=== PATIENT | male | born 1945 | race Caucasian/White ===

== ENCOUNTER 2023-05-06 18:17 | Observation (INO) ==
--- NOTE | 2023-05-06 18:54 | ED Triage Note ---
Date of Service May 06, 2023 Provider in Triage Author: eJna Pepper History of Present Illness This patient was briefly evaluated while in triage. An abbreviated physical exam was performed. This patient is a 77-year-old Male who presents to the ED for evaluation of nausea and vomiting. Pt. c/o jaw pain. States unable to eat or take medications today. Has cancer of the jaw and was here for similar symptoms a few weeks ago. Took 1 zofran this morning but ongoing vomiting despite this medication. Did take another, vomited again. Pt. not currently on treatment for the cancer. Physical Exam VITALS: Vitals are noted on the nurse's note and reviewed by myself. GENERAL: This is a 77 year old male, in no acute distress, nondiaphoretic, well- developed well-nourished. SKIN: No obvious rashes, edema, erythema HEAD: Normocephalic atraumatic. EYES: Conjunctivae without injection, sclerae without icterus. NECK: No JVD. LUNGS: No retractions or accessory muscle use. MUSCULOSKELETAL: Normal gait. NEURO: Patient was alert and oriented to person place and time. No focal neurological deficits. Initial orders for labs and / or imaging were placed and patient was placed in the waiting area until a bed is available. Please see further documentation for the full ED course.
[2023-05-06] MEDS: ONDANSETRON INJ 2 MG/ML 2 ML VIAL IV STA ×2 (20:03→22:30)
[2023-05-06] MEDS: SODIUM CHLORIDE 0.9% 1,000 ML IV SCH (20:03)
[2023-05-06 20:38] LABS: Basophils # (auto) 0.03 K/uL (0.00-0.20); Basophils % (auto) 0.3 %; Eosinophils # (auto) 0.01 K/uL (0.00-0.50); Eosinophils % (auto) 0.1 %; Hematocrit (blood only) 38.5 % (42.0-52.0); Immature Granulocytes # (auto) 0.05 K/uL (0.01-0.20); Immature Granulocytes % (auto) 0.5 %; Lymphocytes # (auto) 0.72 K/uL (1.20-3.40); Lymphocytes % (auto) 7.4 %; Mean Corpuscular Hemoglobin 29.1 pg (25.0-34.0); Mean Corpuscular Hgb Conc 33.8 g/dL (32.0-36.0); Mean Corpuscular Volume 86.3 fL (80.0-100.0); Mean Platelet Volume 10.9 fL (9.4-12.4); Monocytes # (auto) 0.61 K/uL (0.11-0.59); Monocytes % (auto) 6.3 %; Neutrophils # (auto) 8.26 K/uL (1.40-6.50); Neutrophils % (auto) 85.4 %; Platelet Count 258 K/uL (130-400); RDW Coefficient of Variation 13.2 % (11.5-14.5); RDW Standard Deviation 41.1 fL (36.4-46.3); Red Blood Count 4.46 M/uL (4.70-6.10); White Blood Count 9.68 K/ul (4.8-10.8)
[2023-05-06 20:47] LABS: Albumin Globulin Ratio 1.2 (0.9-2); BUN Creatinine Ratio 23.7 (10-20); Bilirubin,Total 1.4 mg/dl (0.2-1.0); Calcium 9.8 mg/dl (8.6-10.3); Creatinine Clr Calc Pharmacy 81.3 ml/min; Est GFR (African American) 103.4 ml/min; Est GFR (Non-African American) 89.2 ml/min; Globulin 3.4 gm/dl (2.5-4.0); Total Protein 7.4 gm/dl (6.0-8.3)
--- NOTE | 2023-05-06 22:01 | Emergency Department Note ---
Impression & Plan Vomiting, Acute dehydration, Cancer ED Provider Note NAME: NESTOR KAISER AGE: 77 SEX: M : 1945 ARRIVES VIA: Walk-In INFORMANT: [Patient] ED PROVIDER(S): [Rosendo Thomas MD] CHIEF COMPLAINT: Nausea HISTORY OF PRESENT ILLNESS: The patient is a 77-year-old male with jaw cancer. The patient is seeing a group of physicians for the cancer, he has not yet started treatment though. Patient does have a left upper quadrant feeding tube. He uses this because he has a hard time eating with the jaw cancer. The patient had a hard time eating last night so he started using his tube feeds. He thinks maybe he gave himself too much of the feedings as he now is nauseated. He has vomited multiple times. He does not really have any abdominal bloating or pain. There has been no fever, no cough or congestion or shortness of breath. No urinary complaints. No diarrhea. Patient has nausea meds at home, he has tried these multiple times without relief. He feels washed out and weak. He has lost 40--50 pounds throughout the last several months because of this cancer. PMHx/PSHx/Social Hx: See Below PHYSICAL EXAM: GENERAL: Patient is in no acute distress. HEENT: No acute trauma, normocephalic atraumatic, mucous membranes moist, no nasal congestion. NECK: No stridor, no adenopathy, no meningismus, trachea is midline. LUNGS: Clear to auscultation bilaterally, no wheeze, no rhonchi, breath sounds equal. HEART: Without murmurs gallops or rubs, regular rate and rhythm. ABDOMEN: Soft, nontender, no peritonitis. Feeding tube noted in the left upper quadrant. EXTREMITIES: No cyanosis, full range of motion of all the joints without pain or difficulty. NEUROLOGIC: Oriented x 3, no acute motor or sensory deficits, no focal weakness. SKIN: No jaundice, no diaphoresis. DIFFERENTIAL DIAGNOSIS: Bowel obstruction, dehydration, electrolyte imbalance, viral or foodborne illness, among others. EMERGENCY DEPARTMENT PROCEDURES: MEDICAL DECISION MAKING: There is no leukocytosis or concerning anemia. There is a normal platelet count. No renal failure or significant electrolyte abnormality. No concerning liver enzyme elevation. No evidence for pancreatitis. Abdominal and pelvis CT does not show any evidence for bowel obstruction or acute surgical process. On exam, there was no peritonitis. The patient was not toxic or febrile. The patient was given IV saline, 1 L. He received IV lactated Ringer's 1 L. He was given IV Zofran for nausea, a second dose of IV Zofran was given. He was given IV Phenergan for nausea. The patient presents with nausea and vomiting despite his Zofran at home. He has known jaw cancer. He feels weak and exhausted and I do think he is dehydrated. Given the vomiting despite his nausea meds, given the need for tube feedings, given the cancer history, I do think hospitalization is warranted. He requires symptom control and further hydration. I spoke with the patient and case management, the on-call hospitalist was consulted. In short, the cause for his presentation is unclear however, no emergent surgical process found by ED workup. Prior/Outside records/notes reviewed: None. ECG per my interpretation: Indication was weakness. The ECG shows a normal sinus rhythm with some sinus arrhythmia. The rate is 72. There is no ST elevation, no PVCs but the QTc is 435. Continuous Cardiac Monitoring per my interpretation: An order was placed for continuous cardiac monitoring. The monitor shows a rate of 89 with normal sinus rhythm. Imaging/x-ray results per my interpretation: Chronic Medical/Social conditions affecting care: Advanced age, jaw cancer. Care/Management discussed with: Case management, the on-call hospitalist. Level of care consideration(s): After review of the information above and other included data: --I believe the patient requires escalation of care to admission DISPOSITION: Admission Past Med/Surg History Medical History Asthma Spinal stenosis Hemorrhagic cerebrovascular accident (CVA) Hypertension Surgical History (Updated 05/05/23 @ 13:25 by Lucina Avilez RN) H/O hemorrhoidectomy S/P tonsillectomy S/P percutaneous endoscopic gastrostomy (PEG) tube placement H/O ankle fusion Family History (Updated 05/05/23 @ 13:25 by Lucina Avilez, RN) Mother Diabetes Father Cancer Mass in lung Other Family history non-contributory Social History Smoking Status: Former smoker Tobacco Type: Cigarettes Cigarettes Per Day: 10; Second Hand Exposure: Yes; Hx Alcohol Use: Yes Alcohol type: beer Hx Substance Use: No Preferred Language: Estonian Communication Ability: Effective Hearing Ability: Hard of Hearing Beliefs That Will Affect Care: None marital status: Current Living Situation: Spouse current occupational status: retired Feels Safe at Home: Yes Diet: Liquid Tube Feedings Diet Comment: water and ensure during the past year weight has: decreased > 10 lbs Assistive Devices: Cane, Glasses and Hearing Aid - Bilateral Allergies Allergies Allergy/AdvReac Type Severity Reaction Status Date / Time grass pollen Allergy Mild sneezing Verified 05/06/23 23:50 congestion in fall tree and shrub pollen Allergy Mild sneezing Verified 05/06/23 23:50 congestion in fall weed pollen Allergy Mild sneezing Verified 05/06/23 23:50 congestion in fall Home Meds Home Medications Medication Instructions Recorded Confirmed amlodipine 2.5 mg tablet 2.5 mg PO BID 05/05/23 05/06/23 bisacodyl 5 mg tablet 10 mg PO DAILY PRN Constipation 05/05/23 05/06/23 celecoxib 100 mg capsule 100 mg PO BID PRN Pain 05/05/23 05/06/23 cyanocobalamin (vitamin B-12) 1,000 mcg PO DAILY 05/05/23 05/06/23 1,000 mcg capsule ensure plus vanilla 1 can PO BID 05/05/23 05/06/23 fluocinonide 0.05 % topical cream 1 applic topical Q OTHER DAY 05/05/23 05/06/23 ketoconazole 2 % shampoo 1 applic topical .COMPLEX 05/05/23 05/06/23 magnesium hydroxide 400 mg/5 mL 10 ml PO DAILY PRN Constipation 05/05/23 05/06/23 oral suspension (Milk of Magnesia) morphine 30 mg immediate release 30 mg PO TID PRN Pain 05/05/23 05/06/23 tablet naloxone 4 mg/actuation nasal spray 4 mg intranasal Q2M 05/05/23 05/06/23 ondansetron 4 mg disintegrating 4 mg PO Q6H PRN NAUSEA/VOMITING 05/05/23 05/06/23 tablet ondansetron 8 mg disintegrating 8 mg PO Q8H PRN NAUSEA/VOMITING 05/05/23 05/06/23 tablet oxycodone 10 mg tablet 15 mg PO Q4H PRN Pain 05/05/23 05/06/23 pantoprazole 40 mg tablet,delayed 40 mg PO BID 05/05/23 05/06/23 release polyethylene glycol 3350 17 17 g PO HS 05/05/23 05/06/23 gram/dose oral powder pregabalin 75 mg capsule 150 mg PO BID 05/05/23 05/06/23 propranolol 60 mg capsule,24 60 mg PO DAILY 05/05/23 05/06/23 hr,extended release protein See Rx Instructions PO .COMPLEX 05/05/23 05/06/23 sennosides 8.6 mg tablet 8.6 mg PO TID PRN Constipation 05/05/23 05/06/23 tamsulosin 0.4 mg capsule 0.4 mg PO DAILY 05/05/23 05/06/23 albuterol sulfate 90 mcg/actuation 1 puff inhalation DIRECTED PRN 05/06/23 05/06/23 aerosol inhaler Shortness Of Breath Or Wheezing hydrochlorothiazide 25 mg tablet 25 mg PO QAM 05/06/23 05/06/23 losartan 25 mg tablet 25 mg PO QAM 05/06/23 05/06/23 Results & Data (ED) Vital Signs Vital Signs - 24 hr 05/06/23 18:50 05/06/23 20:29 05/06/23 20:38 Temperature 36.9 C Temperature Source Temporal Artery Scan Pulse Rate 79 80 Pulse Rate [Apical] Pulse Rate [Finger] 66 Pulse Rhythm [Finger] Respiratory Rate 19 20 Respiratory Effort / Characteristics Respiratory Depth Respiratory Pattern Blood Pressure 150/106 H Blood Pressure [Left Arm] 160/71 H Blood Pressure Mean 120 Blood Pressure Mean [Left Arm] 100 Blood Pressure Position [Left Arm] Pulse Oximetry 99 98 Oxygen Delivery Method Room Air Room Air Sepsis Recent Fever Within 48 Hours No Sepsis New/Unexplained Change in Mental Status N/A Sepsis Action Taken by Nursing No Action Required 05/06/23 20:55 05/06/23 20:55 05/06/23 20:56 Temperature 36.4 C L 36.4 C L Temperature Source Oral Oral Pulse Rate Pulse Rate [Apical] Pulse Rate [Finger] 89 Pulse Rhythm [Finger] Respiratory Rate Respiratory Effort / Characteristics Respiratory Depth Respiratory Pattern Blood Pressure Blood Pressure [Left Arm] Blood Pressure Mean Blood Pressure Mean [Left Arm] Blood Pressure Position [Left Arm] Pulse Oximetry 98 100 Oxygen Delivery Method Room Air Room Air Sepsis Recent Fever Within 48 Hours Sepsis New/Unexplained Change in Mental Status Sepsis Action Taken by Nursing 05/06/23 22:44 05/06/23 23:30 05/06/23 23:54 Temperature Temperature Source Pulse Rate 86 Pulse Rate [Apical] 68 Pulse Rate [Finger] 62 Pulse Rhythm [Finger] Regular Respiratory Rate 18 20 Respiratory Effort / Characteristics Non-Labored Spontaneous Respiratory Depth Normal Respiratory Pattern Regular Blood Pressure 172/81 H Blood Pressure [Left Arm] 167/91 H 167/81 H Blood Pressure Mean Blood Pressure Mean [Left Arm] 116 109 Blood Pressure Position [Left Arm] Lying Pulse Oximetry 97 99 Oxygen Delivery Method Room Air Room Air Sepsis Recent Fever Within 48 Hours Sepsis New/Unexplained Change in Mental Status Sepsis Action Taken by Nursing 05/07/23 00:16 Temperature Temperature Source Pulse Rate 74 Pulse Rate [Apical] Pulse Rate [Finger] Pulse Rhythm [Finger] Respiratory Rate Respiratory Effort / Characteristics Respiratory Depth Respiratory Pattern Blood Pressure 166/93 H Blood Pressure [Left Arm] Blood Pressure Mean Blood Pressure Mean [Left Arm] Blood Pressure Position [Left Arm] Pulse Oximetry Oxygen Delivery Method Sepsis Recent Fever Within 48 Hours Sepsis New/Unexplained Change in Mental Status Sepsis Action Taken by Care Home Medications Current Medication List: was personally reviewed by me Laboratory Data Attestation: I reviewed the patient's lab results. 05/06/23 20:05 05/06/23 20:05 Lab Results 05/06/23 Range/Units 20:05 WBC 9.68 (4.8-10.8) K/ul RBC 4.46 L (4.70-6.10) M/uL Hgb 13.0 L (14.0-18.0) g/dl Hct 38.5 L (42.0-52.0) % MCV 86.3 (80.0-100.0) fL MCH 29.1 (25.0-34.0) pg MCHC 33.8 (32.0-36.0) g/dL RDW Std Deviation 41.1 (36.4-46.3) fL RDW Coeff of José 13.2 (11.5-14.5) % Plt Count 258 (130-400) K/uL MPV 10.9 (9.4-12.4) fL Immature Gran % (Auto) 0.5 % Neut % (Auto) 85.4 % Lymph % (Auto) 7.4 % [place] % (Auto) 6.3 % Eos % (Auto) 0.1 % Baso % (Auto) 0.3 % Neut # (Auto) 8.26 H (1.40-6.50) K/uL Lymph # (Auto) 0.72 L (1.20-3.40) K/uL [place] # (Auto) 0.61 H (0.11-0.59) K/uL Eos # (Auto) 0.01 (0.00-0.50) K/uL Baso # (Auto) 0.03 (0.00-0.20) K/uL Immature Gran # (Auto) 0.05 (0.01-0.20) K/uL Sodium 137 (136-145) mmol/L Potassium 4.0 (3.5-5.1) mmol/L Chloride 97 L (98-107) mmol/L Carbon Dioxide 32 (21-32) mmol/L Anion Gap 8 (3-11) BUN 18 (6-23) mg/dl Creatinine 0.76 (0.6-1.4) mg/dl Est Cr Clr Drug Dosing 81.3 ml/min Est GFR ( Amer) 103.4 ml/min Est GFR (Non-Af Amer) 89.2 ml/min BUN/Creatinine Ratio 23.7 H (10-20) Glucose 113 H (70-99(Fasting)) mg/dl Calcium 9.8 (8.6-10.3) mg/dl Magnesium 2.1 (1.7-2.4) mg/dl Total Bilirubin 1.4 H (0.2-1.0) mg/dl AST 19 (13-39) U/L ALT 40 (7-52) U/L Alkaline Phosphatase 101 (34-104) U/L Total Protein 7.4 (6.0-8.3) gm/dl Albumin 4.0 (3.4-5.0) gm/dl Globulin 3.4 (2.5-4.0) gm/dl Albumin/Globulin Ratio 1.2 (0.9-2) Lipase 12 (11-82) U/L Administered Medications Discontinued Medications Sodium Chloride (Nss) 1,000 mls @ 999 mls/hr IV .Q1H1M TASHA Stop: 05/06/23 20:00 Last Infusion: 05/06/23 22:02 Dose: Infused Documented By: Admin: 05/06/23 20:03 Dose: 999 mls/hr Documented By: EDIN Promethazine HCl (Phenergan) 6.25 mg in 50.25 mls @ 201 mls/hr IV NOW STA Stop: 05/06/23 22:01 Last Infusion: 05/06/23 23:17 Dose: Infused Documented By: Admin: 05/06/23 22:27 Dose: 201 mls/hr Documented By: EDWARD Lactated Ringer's (Lr) 1,000 mls @ 999 mls/hr IV .Q1H1M ONE Stop: 05/06/23 22:47 Last Infusion: 05/06/23 23:37 Dose: Infused Documented By: Admin: 05/06/23 22:26 Dose: 999 mls/hr Documented By: EDWARD Ioversol (Optiray 320 500ml) 82 ml IV ONCE ONE Stop: 05/06/23 22:16 Last Admin: 05/06/23 22:15 Dose: 82 ml Documented By: ELISSA Metoprolol Tartrate (Metoprolol Tartrate 1 Mg/Ml Vial) 2.5 mg IV NOW STA Stop: 05/06/23 23:37 Last Admin: 05/06/23 23:54 Dose: 2.5 mg Documented By: JACKSON Morphine Sulfate (Morphine Sulfate Ir 15 Mg Tab (Immediate Release)) 30 mg PO NOW STA Stop: 05/07/23 00:18 Last Admin: 05/07/23 00:35 Dose: 30 mg Documented By: JACKSON Ondansetron HCl (Ondansetron Inj 2 Mg/Ml 2 Ml Vial) 4 mg IV NOW STA Stop: 05/06/23 18:55 Last Admin: 05/06/23 20:03 Dose: 4 mg Documented By: EDIN Ondansetron HCl (Ondansetron Inj 2 Mg/Ml 2 Ml Vial) 4 mg IV NOW STA Stop: 05/06/23 21:48 Last Admin: 05/06/23 22:30 Dose: Not Given Documented By: EDWARD Pregabalin (Pregabalin 150 Mg Cap) 150 mg PO NOW STA Stop: 05/07/23 00:19 Last Admin: 05/07/23 00:35 Dose: 150 mg Documented By: JACKSON Imaging Data Radiologist's Impression: Abdomen/Pelvis CT 05/06/23 21:47 Exam(s): CT ABDOMEN + PELVIS With Contrast IV Amt: 82 ml optiray 320 EXAM: CT Abdomen and Pelvis With Intravenous Contrast CLINICAL HISTORY: Reason for exam: poss obstruction. TECHNIQUE: Axial computed tomography images of the abdomen and pelvis with intravenous contrast. CTDI is 19.33 mGy and DLP is 1018.19 mGy-cm. Automated exposure control was utilized for the study. A dose lowering technique was utilized adhering to the principles of ALARA. CONTRAST: Patient received 82 ml optiray 320 of IV contrast COMPARISON: December 14, 2017 FINDINGS: Lung bases: Unremarkable. No mass. No consolidation. ABDOMEN: Liver: Unremarkable. No mass. Gallbladder and bile ducts: Previous cholecystectomy. Is a trace amount of pneumobilia. No biliary duct dilation is seen. Pancreas: Unremarkable. No mass. No ductal dilation. Spleen: Unremarkable. No splenomegaly. Adrenals: Unremarkable. No mass. Kidneys and ureters: Unremarkable. No solid mass. No hydronephrosis. Stomach and bowel: See below. PELVIS: Appendix: The appendix is not visible. Bowel loops are nondilated. There is mild diverticulosis of the sigmoid colon. No acute inflammatory changes are seen involving the bowel. Bladder: Unremarkable. No mass. Reproductive: Unremarkable as visualized. ABDOMEN and PELVIS: Intraperitoneal space: Unremarkable. No free air. No significant fluid collection. Bones/joints: Mild to moderate multilevel degenerative changes throughout the spine. No acute fracture or subluxation is seen. Soft tissues: Unremarkable. Vasculature: The abdominal aorta is mildly calcified but nondilated. Lymph nodes: Unremarkable. No enlarged lymph nodes. Tubes, lines and devices: There is a gastrostomy tube in the stomach. IMPRESSION: 1. The appendix is not visible. Bowel loops are nondilated. There is mild diverticulosis of the sigmoid colon. No acute inflammatory changes are seen involving the bowel. 2. Previous cholecystectomy. Is a trace amount of pneumobilia. No biliary duct dilation is seen. Electronically signed by: David Bajwa MD 05/06/23 23:08 PM Discharge Plan Visit Data Chief Complaint: Nausea Stated Complaint: NAUSEA, PAIN, UNABLE EAT, VOMITTING, CANCER PT ED Provider: Rosendo Thomas Discharge Problem: Vomiting, Acute dehydration, Cancer Patient Disposition: Admitted As Inpatient Condition: Fair Forms Stand Alone Forms: [facility] Prescriptions Prescriptions: No Action amlodipine 2.5 mg tablet 2.5 mg PO BID celecoxib 100 mg capsule 100 mg PO BID PRN (Reason: Pain) cyanocobalamin (vitamin B-12) 1,000 mcg capsule 1,000 mcg PO DAILY naloxone 4 mg/actuation spray,non-aerosol 4 mg intranasal Q2M Rx Instructions: spray 1 dose into ONE nostril; alternate nostrils w each dose until help arrives ensure plus vanilla 1 can PO BID protein Powder See Rx Instructions PO .COMPLEX Rx Instructions: 1 scoop by mouth three times daily orally; ondansetron 4 mg tablet,disintegrating 4 mg PO Q6H PRN (Reason: NAUSEA/VOMITING) ondansetron 8 mg tablet,disintegrating 8 mg PO Q8H PRN (Reason: NAUSEA/VOMITING) pantoprazole 40 mg tablet,delayed release (DR/EC) 40 mg PO BID polyethylene glycol 3350 17 gram/dose powder 17 g PO HS pregabalin 75 mg capsule 150 mg PO BID propranolol 60 mg capsule,extended release 24 hr 60 mg PO DAILY sennosides 8.6 mg tablet 8.6 mg PO TID PRN (Reason: Constipation) Patient Comments: take on days when taking oxycodone tamsulosin 0.4 mg capsule 0.4 mg PO DAILY bisacodyl 5 mg tablet 10 mg PO DAILY PRN (Reason: Constipation) fluocinonide 0.05 % cream 1 applic topical Q OTHER DAY ketoconazole 2 % shampoo 1 applic topical .COMPLEX Rx Instructions: 1 applic topically small amount to skin dialy; magnesium hydroxide [Milk of Magnesia] 400 mg/5 mL suspension 10 ml PO DAILY PRN (Reason: Constipation) morphine 30 mg tablet 30 mg PO TID PRN (Reason: Pain) oxycodone 10 mg tablet 15 mg PO Q4H PRN (Reason: Pain) losartan 25 mg tablet 25 mg PO QAM hydrochlorothiazide 25 mg tablet 25 mg PO QAM albuterol sulfate 90 mcg/actuation Hfa Aerosol Inhaler 1 puff INHALATION DIRECTED PRN (Reason: Shortness Of Breath Or Wheezing) Referrals Referrals: Rajat Zurita MD [Primary Care Provider] - Discharge Problem: Vomiting Qualifiers: Vomiting type: unspecified Nausea presence: with nausea Qualified Code(s): R 11.2 - Nausea with vomiting, unspecified
[2023-05-06 22:08] LABS: Magnesium 2.1 mg/dl (1.7-2.4)
[2023-05-06] MEDS: OPTIRAY 320 500ml IV ONE (22:15)
[2023-05-06] MEDS: LACTATED RINGER'S 1,000 ML IV ONE (22:26)
[2023-05-06] MEDS: PROMETHAZINE 6.25 MG/50.25 ML BAG IV STA (22:27)
--- NOTE | 2023-05-06 23:09 | CT Scan Report ---
Exam(s): CT ABDOMEN + PELVIS With Contrast IV Amt: 82 ml optiray 320 EXAM: CT Abdomen and Pelvis With Intravenous Contrast CLINICAL HISTORY: Reason for exam: poss obstruction. TECHNIQUE: Axial computed tomography images of the abdomen and pelvis with intravenous contrast. CTDI is 19.33 mGy and DLP is 1018.19 mGy-cm. Automated exposure control was utilized for the study. A dose lowering technique was utilized adhering to the principles of ALARA. CONTRAST: Patient received 82 ml optiray 320 of IV contrast COMPARISON: December 14, 2017 FINDINGS: Lung bases: Unremarkable. No mass. No consolidation. ABDOMEN: Liver: Unremarkable. No mass. Gallbladder and bile ducts: Previous cholecystectomy. Is a trace amount of pneumobilia. No biliary duct dilation is seen. Pancreas: Unremarkable. No mass. No ductal dilation. Spleen: Unremarkable. No splenomegaly. Adrenals: Unremarkable. No mass. Kidneys and ureters: Unremarkable. No solid mass. No hydronephrosis. Stomach and bowel: See below. PELVIS: Appendix: The appendix is not visible. Bowel loops are nondilated. There is mild diverticulosis of the sigmoid colon. No acute inflammatory changes are seen involving the bowel. Bladder: Unremarkable. No mass. Reproductive: Unremarkable as visualized. ABDOMEN and PELVIS: Intraperitoneal space: Unremarkable. No free air. No significant fluid collection. Bones/joints: Mild to moderate multilevel degenerative changes throughout the spine. No acute fracture or subluxation is seen. Soft tissues: Unremarkable. Vasculature: The abdominal aorta is mildly calcified but nondilated. Lymph nodes: Unremarkable. No enlarged lymph nodes. Tubes, lines and devices: There is a gastrostomy tube in the stomach. IMPRESSION: 1. The appendix is not visible. Bowel loops are nondilated. There is mild diverticulosis of the sigmoid colon. No acute inflammatory changes are seen involving the bowel. 2. Previous cholecystectomy. Is a trace amount of pneumobilia. No biliary duct dilation is seen. Electronically signed by: David Bajwa MD 05/06/23 23:08 PM
[2023-05-06] MEDS: METOPROLOL TARTRATE 1 MG/ML VIAL IV STA (23:54)
--- NOTE | 2023-05-07 00:19 | History & Physical Report ---
Date of Service May 07, 2023 Assessment & Plan (1) Asymptomatic hypertensive urgency: Plan: Secondary to nausea/vomiting symptoms ? Viral GI illness Rule out UTI New onset anemia, patient denies overt GI/ bleed symptoms hyperlipidemia, on statin Rx stage IV oral cavity cancer, chemoradiation contemplated, patient scheduled to have outpatient CT simulation study today at [facility] cancer pain on narcotics history traumatic subdural hematoma bronchial asthma, not in acute exacerbation past tobacco abuse OBS Medical telemetry IV Lopressor 1 dose now Antiemetics Supportive management for presumptive viral GI illness Anemia workup, transfuse PRBC if hemoglobin less than 7 and or for symptomatic anemia Radiation oncology consult re: head and neck cancer, contemplated outpatient RT (Patient known to Dr. Carmelita Morgan.) DVT prophylaxis. Lovenox subcu Full code Patient requesting updates providers. Ms. Jessi Cortes, contact #[phone]. Text document was generated using [employer] voice recognition software. It may contain grammatical or spelling errors. Kindly contact undersigned for clarification of any documentation item in question. History of Present Illness Chief Complaint: nausea, vomiting Primary Care Provider: Dr. Rice History obtained from patient, family, and records. Medical history significant for hypertension, hyperlipidemia, stage IV oral cavity cancer, ongoing tube feeds, cancer pain on narcotics, BPH, history traumatic subdural hematoma, bronchial asthma, past tobacco abuse. 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 Surgery not recommended by specialist. Chemoradiation contemplated. Patient scheduled to have outpatient CT simulation imaging for treatment planning for radiation therapy today at [facility] following initial consultation 2 days ago. 2 nights ago, patient noted nausea, vomiting symptoms. No unusual headache or abdominal pain complaints. No chest pain, SOB. Not sure about sick contacts. Good bowel movement. Denies black/bloody stools. No fever, no chills. Patient unable to keep anything down as per . Highest SBP of 170s documented at the ER. Intractable symptoms at the ER. 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 Allergies Allergy/AdvReac Type Severity Reaction Status Date / Time grass pollen Allergy Mild sneezing Verified 05/06/23 23:50 congestion in fall tree and shrub pollen Allergy Mild sneezing Verified 05/06/23 23:50 congestion in fall weed pollen Allergy Mild sneezing Verified 05/06/23 23:50 congestion in fall Home Medications Medication Instructions Recorded Confirmed Type amlodipine 2.5 mg tablet 2.5 mg PO BID 05/05/23 05/06/23 History bisacodyl 5 mg tablet 10 mg PO DAILY PRN Constipation 05/05/23 05/06/23 History celecoxib 100 mg capsule 100 mg PO BID PRN Pain 05/05/23 05/06/23 History cyanocobalamin (vitamin B-12) 1,000 mcg PO DAILY 05/05/23 05/06/23 History 1,000 mcg capsule ensure plus vanilla 1 can PO BID 05/05/23 05/06/23 History fluocinonide 0.05 % topical cream 1 applic topical Q OTHER DAY 05/05/23 05/06/23 History ketoconazole 2 % shampoo 1 applic topical .COMPLEX 05/05/23 05/06/23 History magnesium hydroxide 400 mg/5 mL 10 ml PO DAILY PRN Constipation 05/05/23 05/06/23 History oral suspension (Milk of Magnesia) morphine 30 mg immediate release 30 mg PO TID PRN Pain 05/05/23 05/06/23 History tablet naloxone 4 mg/actuation nasal spray 4 mg intranasal Q2M 05/05/23 05/06/23 History ondansetron 4 mg disintegrating 4 mg PO Q6H PRN NAUSEA/VOMITING 05/05/23 05/06/23 History tablet ondansetron 8 mg disintegrating 8 mg PO Q8H PRN NAUSEA/VOMITING 05/05/23 05/06/23 History tablet oxycodone 10 mg tablet 15 mg PO Q4H PRN Pain 05/05/23 05/06/23 History pantoprazole 40 mg tablet,delayed 40 mg PO BID 05/05/23 05/06/23 History release polyethylene glycol 3350 17 17 g PO HS 05/05/23 05/06/23 History gram/dose oral powder pregabalin 75 mg capsule 150 mg PO BID 05/05/23 05/06/23 History propranolol 60 mg capsule,24 60 mg PO DAILY 05/05/23 05/06/23 History hr,extended release protein See Rx Instructions PO .COMPLEX 05/05/23 05/06/23 History sennosides 8.6 mg tablet 8.6 mg PO TID PRN Constipation 05/05/23 05/06/23 History tamsulosin 0.4 mg capsule 0.4 mg PO DAILY 05/05/23 05/06/23 History albuterol sulfate 90 mcg/actuation 1 puff inhalation DIRECTED PRN 05/06/23 05/06/23 History aerosol inhaler Shortness Of Breath Or Wheezing hydrochlorothiazide 25 mg tablet 25 mg PO QAM 05/06/23 05/06/23 History losartan 25 mg tablet 25 mg PO QAM 05/06/23 05/06/23 History Past Med/Surg History Medical History Asthma Spinal stenosis Hemorrhagic cerebrovascular accident (CVA) Hypertension Surgical History (Updated 05/05/23 @ 13:25 by Lucina Avilez RN) H/O hemorrhoidectomy S/P tonsillectomy S/P percutaneous endoscopic gastrostomy (PEG) tube placement H/O ankle fusion Family History (Updated 05/05/23 @ 13:25 by Lucina Avilez, RN) Mother Diabetes Father Cancer Mass in lung Other Family history non-contributory Social History Smoking Status: Former smoker Tobacco Type: Cigarettes Cigarettes Per Day: 10; Second Hand Exposure: Yes; Hx Alcohol Use: No Hx Substance Use: No Preferred Language: Maltese Communication Ability: Effective Hearing Ability: Hard of Hearing Contract Loader Required: No Beliefs That Will Affect Care: None marital status: Current Living Situation: Spouse current occupational status: retired Other Information That Helps Us Care for You: No Feels Safe at Home: Yes Safety Concerns: Feels Safe At This Time Diet: Liquid Tube Feedings Diet Comment: water and ensure during the past year weight has: decreased > 10 lbs Assistive Devices: Cane Assistive Devices Comment: doesn't use all the time Review of Systems Review of Systems: As per HPI, all other systems reviewed and negative Physical Exam Physical Exam: GENERAL: Slightly uncomfortable, no respiratory distress SKIN: Pallor, warm HEENT: Pale palpebral conjunctivae, no ptosis, dry buccal mucosa, left jaw tenderness NECK : Supple, no tenderness CHEST : CTA, no tenderness HEART : RRR, no obvious murmurs ABDOMEN: Some distention, PEG tube in place, nontender EXTREMITIES : No LE swelling/tenderness, no other conspicuous deformities noted NEUROLOGIC : Coherent, no facial asymmetry, no other gross focality Results & Data Results & Data Vital Signs (Past 12 Hours) Vital Signs Temp Pulse Pulse Pulse Resp BP BP 05/07/23 00:16 74 166/93 H 05/06/23 23:54 86 172/81 H 05/06/23 23:30 68 20 167/81 H 05/06/23 22:44 62 18 167/91 H 05/06/23 20:56 36.4 C L 89 05/06/23 20:55 05/06/23 20:55 36.4 C L 05/06/23 20:38 80 05/06/23 20:29 66 20 160/71 H 05/06/23 18:50 36.9 C 79 19 150/106 H Pulse Ox O2 Del Method 05/07/23 00:16 05/06/23 23:54 05/06/23 23:30 99 Room Air 05/06/23 22:44 97 Room Air 05/06/23 20:56 100 Room Air 05/06/23 20:55 98 Room Air 05/06/23 20:55 05/06/23 20:38 05/06/23 20:29 98 Room Air 05/06/23 18:50 99 Room Air Laboratory Results Laboratory Results WBC 9.68 K/ul (4.8-10.8) 05/06/23 20:05 RBC 4.46 M/uL (4.70-6.10) L 05/06/23 20:05 Hgb 13.0 g/dl (14.0-18.0) L 05/06/23 20:05 Hct 38.5 % (42.0-52.0) L 05/06/23 20:05 MCV 86.3 fL (80.0-100.0) 05/06/23 20:05 MCH 29.1 pg (25.0-34.0) 05/06/23 20:05 MCHC 33.8 g/dL (32.0-36.0) 05/06/23 20:05 RDW Std Deviation 41.1 fL (36.4-46.3) 05/06/23 20:05 RDW Coeff of José 13.2 % (11.5-14.5) 05/06/23 20:05 Plt Count 258 K/uL (130-400) 05/06/23 20:05 MPV 10.9 fL (9.4-12.4) 05/06/23 20:05 Immature Gran % (Auto) 0.5 % 05/06/23 20:05 Neut % (Auto) 85.4 % 05/06/23 20:05 Lymph % (Auto) 7.4 % 05/06/23 20:05 [place] % (Auto) 6.3 % 05/06/23 20:05 Eos % (Auto) 0.1 % 05/06/23 20:05 Baso % (Auto) 0.3 % 05/06/23 20:05 Neut # (Auto) 8.26 K/uL (1.40-6.50) H 05/06/23 20:05 Lymph # (Auto) 0.72 K/uL (1.20-3.40) L 05/06/23 20:05 [place] # (Auto) 0.61 K/uL (0.11-0.59) H 05/06/23 20:05 Eos # (Auto) 0.01 K/uL (0.00-0.50) 05/06/23 20:05 Baso # (Auto) 0.03 K/uL (0.00-0.20) 05/06/23 20:05 Immature Gran # (Auto) 0.05 K/uL (0.01-0.20) 05/06/23 20:05 Sodium 137 mmol/L (136-145) 05/06/23 20:05 Potassium 4.0 mmol/L (3.5-5.1) 05/06/23 20:05 Chloride 97 mmol/L (98-107) L 05/06/23 20:05 Carbon Dioxide 32 mmol/L (21-32) 05/06/23 20:05 Anion Gap 8 (3-11) 05/06/23 20:05 BUN 18 mg/dl (6-23) 05/06/23 20:05 Creatinine 0.76 mg/dl (0.6-1.4) 05/06/23 20:05 Est Cr Clr Drug Dosing 81.3 ml/min 05/06/23 20:05 Est GFR ( Amer) 103.4 ml/min 05/06/23 20:05 Est GFR (Non-Af Amer) 89.2 ml/min 05/06/23 20:05 BUN/Creatinine Ratio 23.7 (10-20) H 05/06/23 20:05 Glucose 113 mg/dl (70-99(Fasting)) H 05/06/23 20:05 Calcium 9.8 mg/dl (8.6-10.3) 05/06/23 20:05 Magnesium 2.1 mg/dl (1.7-2.4) 05/06/23 20:05 Total Bilirubin 1.4 mg/dl (0.2-1.0) H 05/06/23 20:05 AST 19 U/L (13-39) 05/06/23 20:05 ALT 40 U/L (7-52) 05/06/23 20:05 Alkaline Phosphatase 101 U/L (34-104) 05/06/23 20:05 Total Protein 7.4 gm/dl (6.0-8.3) 05/06/23 20:05 Albumin 4.0 gm/dl (3.4-5.0) 05/06/23 20:05 Globulin 3.4 gm/dl (2.5-4.0) 05/06/23 20:05 Albumin/Globulin Ratio 1.2 (0.9-2) 05/06/23 20:05 Lipase 12 U/L (11-82) 05/06/23 20:05 Impressions Abdomen/Pelvis CT 05/06/23 21:47 Exam(s): CT ABDOMEN + PELVIS With Contrast IV Amt: 82 ml optiray 320 EXAM: CT Abdomen and Pelvis With Intravenous Contrast CLINICAL HISTORY: Reason for exam: poss obstruction. TECHNIQUE: Axial computed tomography images of the abdomen and pelvis with intravenous contrast. CTDI is 19.33 mGy and DLP is 1018.19 mGy-cm. Automated exposure control was utilized for the study. A dose lowering technique was utilized adhering to the principles of ALARA. CONTRAST: Patient received 82 ml optiray 320 of IV contrast COMPARISON: December 14, 2017 FINDINGS: Lung bases: Unremarkable. No mass. No consolidation. ABDOMEN: Liver: Unremarkable. No mass. Gallbladder and bile ducts: Previous cholecystectomy. Is a trace amount of pneumobilia. No biliary duct dilation is seen. Pancreas: Unremarkable. No mass. No ductal dilation. Spleen: Unremarkable. No splenomegaly. Adrenals: Unremarkable. No mass. Kidneys and ureters: Unremarkable. No solid mass. No hydronephrosis. Stomach and bowel: See below. PELVIS: Appendix: The appendix is not visible. Bowel loops are nondilated. There is mild diverticulosis of the sigmoid colon. No acute inflammatory changes are seen involving the bowel. Bladder: Unremarkable. No mass. Reproductive: Unremarkable as visualized. ABDOMEN and PELVIS: Intraperitoneal space: Unremarkable. No free air. No significant fluid collection. Bones/joints: Mild to moderate multilevel degenerative changes throughout the spine. No acute fracture or subluxation is seen. Soft tissues: Unremarkable. Vasculature: The abdominal aorta is mildly calcified but nondilated. Lymph nodes: Unremarkable. No enlarged lymph nodes. Tubes, lines and devices: There is a gastrostomy tube in the stomach. IMPRESSION: 1. The appendix is not visible. Bowel loops are nondilated. There is mild diverticulosis of the sigmoid colon. No acute inflammatory changes are seen involving the bowel. 2. Previous cholecystectomy. Is a trace amount of pneumobilia. No biliary duct dilation is seen. Electronically signed by: David Bajwa MD 05/06/23 23:08 PM
[2023-05-07] MEDS ORDERED: PROMETHAZINE HCL 6.25 MG in SODIUM CHLORIDE 0.9% 50 ML IV PRN (00:22)
[2023-05-07] MEDS ORDERED: ACETAMINOPHEN 325 MG TAB PO PRN (00:22)
[2023-05-07] MEDS: MoRPHine SULFATE IR 15 MG TAB (IMMEDIATE RELEASE) PO STA (00:35)
[2023-05-07] MEDS: PREGABALIN 150 MG CAP PO STA (00:35)
[2023-05-07 01:21] LABS: Appearance Urine Turbid (Clear); Bacteria Urine Automated Negative (Negative); Bilirubin Urine Negative (Negative); Blood Urine Negative (Negative); Color Urine Yellow; Glucose Urine UA Negative (Negative); Ketones Urine 1+ (Negative); Leukocyte Esterase Urine Negative (Negative); Nitrite Urine Negative (Negative); Protein Urine Negative (Negative); RBC Urine Automated 0-4 /hpf (0-4); Specific Gravity Urine 1.036 (1.000-1.030); Urobilinogen Urine Negative (Negative); pH Urine >= 9.0 (4.5-7.5)
[2023-05-07] MEDS ORDERED: MAGNESIUM HYDROXIDE SUSP 30 ML UDC PO PRN (02:58)
[2023-05-07] MEDS ORDERED: bisacodyL 5 MG TABEC PO PRN (03:05)
[2023-05-07] MEDS: LOSARTAN POTASSIUM 50 MG TAB PO STA (04:25)
[2023-05-07 08:03] LABS: Basophils # (auto) 0.05 K/uL (0.00-0.20); Basophils % (auto) 0.5 %; Eosinophils # (auto) 0.07 K/uL (0.00-0.50); Eosinophils % (auto) 0.6 %; Hematocrit (blood only) 34.1 % (42.0-52.0); Hemoglobin 11.8 g/dl (14.0-18.0); Immature Granulocytes # (auto) 0.04 K/uL (0.01-0.20); Immature Granulocytes % (auto) 0.4 %; Lymphocytes # (auto) 1.08 K/uL (1.20-3.40); Lymphocytes % (auto) 9.7 %; Mean Corpuscular Hemoglobin 29.7 pg (25.0-34.0); Mean Corpuscular Hgb Conc 34.6 g/dL (32.0-36.0); Mean Corpuscular Volume 85.9 fL (80.0-100.0); Mean Platelet Volume 10.6 fL (9.4-12.4); Monocytes # (auto) 1.28 K/uL (0.11-0.59); Monocytes % (auto) 11.5 %; Neutrophils # (auto) 8.59 K/uL (1.40-6.50); Neutrophils % (auto) 77.3 %; Platelet Count 217 K/uL (130-400); RDW Coefficient of Variation 13.2 % (11.5-14.5); RDW Standard Deviation 41.1 fL (36.4-46.3); Red Blood Count 3.97 M/uL (4.70-6.10); Reticulocyte % 1.45 % (0.50-2.00); White Blood Count 11.11 K/ul (4.8-10.8)
--- NOTE | 2023-05-07 08:11 | Hospitalist Progress Note ---
Date of Service May 07, 2023 Assessment & Plan (1) Asymptomatic hypertensive urgency: (2) On tube feeding diet: (3) Jaw pain: Plan Pt is a 77yoM with PMHx significant for hypertension, hyperlipidemia, stage IV oral cavity cancer, ongoing tube feeds, cancer pain on narcotics, BPH, history traumatic subdural hematoma, bronchial asthma, past tobacco abuse admitted with intractable N/V. 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 Presenting with intractable N/V after starting tube feeds at home Notes he has not been able to eat at home due to jaw pain so started his tube feeds, questions if overfeeding and causing N/V UA not suggestive of infection as a possible cause Stool panel pending to rule out a viral GI illness Uncertain etiology at this time Antiemetics- Heme/onc recommending compazine + zofran for d/c (see below), ordered while inpatient as well Supportive management for presumptive viral GI illness Continue to monitor SCC of gingiva with mandibular invasion Pt with known diagnosis, follows with rad onc, appreciate recs. - recommendation for combined radiation and chemotherapy -CT simulation completed on 05/07 -per rad onc Dr Eddie torres consult to [facility] cancer center for medical oncology consult, Dr Ag montalvo Medical Oncology consulted, appreciate recs -plan for chemo outpatient, cisplatin while receiving radiation -follow up in clinic within a week for further discussion after radiation planning completed -Consider discharging home on both Zofran and Compazine for nausea (ordered inpatient for use as well) Chronic Jaw Pain-in setting of cancer above Tube feeds Pt with chronic jaw pain in setting of cancer above Unable to eat at times, requires tube feeds Notes he has not been able to eat at home due to jaw pain so started his tube feeds, questions if overfeeding and causing N/V Head Of Talent Management consult, appreciate recs -tube feeds resumed while hospitalized On narcotics for pain, continue with bowel regimen (miralax qhs with colace and senakot prn) New onset anemia Hgb of 13 on admission, currently down to ~11 Anemia workup with iron, ferritin, b12 and folate patient denies overt GI/ bleed symptoms transfuse PRBC if hemoglobin less than 7 and/or for symptomatic anemia hyperlipidemia on statin Rx, continue history traumatic subdural hematoma stable bronchial asthma not in acute exacerbation stable Diet: Tube feeds, clear liquid diet ordered DVT prophylaxis:Lovenox subcu Full code Patient's requesting updates providers. Ms. Jessi Cortes, contact #[phone] Admission and Anticipated Discharge Date Admission Date: May 07, 2023 Subjective Pt was seen with at bedside. Was coming out of the bathroom. Stated at that time that the N/V had improved. Later notified by training project manager that he wanted tube feeds started once more as he was having some N/V again. Review of Systems Review of Systems: All systems reviewed & are unremarkable except as noted in Subjective Physical Exam Physical Exam: General: Alert, oriented. No acute distress Skin: No noted rashes or bruises Psych: Appropriate mood and affect Neuro: No gross deficits HEENT: NC/AT, oropharynx moist CV: RRR Resp: Breath sounds clear bilaterally, no increased effort of breathing. Abdomen: Soft, noted feeding tube system, notes tenderness in RLQ Extremities: No edema in lower extremities bilaterally. Results & Data Results & Data Vital Signs (Past 12 Hours) Vital Signs Temp Pulse Pulse Pulse Pulse Resp BP 05/07/23 07:20 37 C 73 18 05/07/23 03:36 64 05/07/23 02:58 60 18 05/07/23 02:50 36.5 C 70 18 05/07/23 02:21 72 15 155/76 H 05/07/23 01:36 63 17 05/07/23 00:59 36.8 C 62 20 05/07/23 00:16 74 166/93 H 05/06/23 23:54 86 172/81 H 05/06/23 23:30 68 20 05/06/23 22:44 62 18 05/06/23 20:56 36.4 C L 89 05/06/23 20:55 05/06/23 20:55 36.4 C L 05/06/23 20:38 80 05/06/23 20:29 66 20 BP BP Pulse Ox O2 Del Method 05/07/23 07:20 166/80 H 97 Room Air 05/07/23 03:36 05/07/23 02:58 05/07/23 02:50 184/80 H 97 Room Air 05/07/23 02:21 96 Room Air 05/07/23 01:36 179/95 H 97 Room Air 05/07/23 00:59 172/89 H 99 Room Air 05/07/23 00:16 05/06/23 23:54 05/06/23 23:30 167/81 H 99 Room Air 05/06/23 22:44 167/91 H 97 Room Air 05/06/23 20:56 100 Room Air 05/06/23 20:55 98 Room Air 05/06/23 20:55 05/06/23 20:38 05/06/23 20:29 160/71 H 98 Room Air
[2023-05-07 08:22] LABS: BUN Creatinine Ratio 25.9 (10-20); Calcium 8.7 mg/dl (8.6-10.3); Creatinine Clr Calc Pharmacy 106.5 ml/min; Est GFR (African American) 115.6 ml/min; Est GFR (Non-African American) 99.7 ml/min; Potassium 3.7 mmol/L (3.5-5.1)
[2023-05-07 08:41] LABS: Ferritin 495.2 ng/ml (8-388)
[2023-05-07 08:44] LABS: Folate (Folic Acid),Ser orPlas 15.02 ng/ml (>5.38)
[2023-05-07] MEDS: MoRPHine SULFATE IR 15 MG TAB (IMMEDIATE RELEASE) PO PRN (08:52)
[2023-05-07] MEDS: ENOXAPARIN INJ 40 MG/0.4 ML SYR SQ SCH (08:52)
[2023-05-07] MEDS: PREGABALIN 150 MG CAP PO SCH (08:52)
[2023-05-07] MEDS: SENNA 8.6 MG TAB PO PRN (08:53)
[2023-05-07] MEDS: TAMSULOSIN HCL 0.4 MG CAP PO SCH (08:53)
[2023-05-07] MEDS: PANTOprazole 40 MG TAB PO SCH (08:53)
[2023-05-07] MEDS: PROPRANOLOL HCL 60 MG LA CAP PO SCH (08:53)
[2023-05-07] MEDS: amLODIPine BESYLATE 5 MG TAB PO SCH (08:53)
[2023-05-07] MEDS: CYANOCOBALAMIN (B-12) 500 MCG TABLET PO SCH (08:54)
[2023-05-07] MEDS ORDERED: LOSARTAN POTASSIUM 25 MG TAB PO SCH (09:00)
--- NOTE | 2023-05-07 09:40 | Radiation OncologyConsultation ---
Date of Consultation May 07, 2023 Assessment & Plan (1) Squamous cell carcinoma of gingiva: 77-year-old gentleman admitted due to nausea and vomiting. Due to inability to take his blood pressure medications his pressure was elevated. He was asymptomatic in regards to the elevated blood pressure. He denies fever or chills. He has had no issues with diarrhea. He is having no abdominal pain. He has a known history of squamous cell carcinoma of the gingiva. He was recently seen in our office for consultation. There is recommendation for combined radiation and chemotherapy. Dr. Morgan has spoke with Dr. Luong as well as the hospitalist. A medical oncology consultation will be placed. This will help to expedite initiation of treatment. Patient and his are in agreement with this plan. He had been scheduled to have his CT simulation today. He would like to go forward with having his scan completed. He will be brought to our office and undergo his CT simulation. Plan ATTENDING ADDENDUM: Patient's case was reviewed with midlevel provider. I agree with the note as dictated. Plan to bring patient down for CT simulation for radiation therapy given the fact that he stable to expedite treatment planning process. We have requested that the primary hospital team consult medical oncology to expedite medical oncology consultation. History of Present Illness Reason for Consultation: Patient has known head and neck cancer is for CT simulation today. Evaluation to see if he can undergo his scan. Requesting Physician: Kaylene Chau MD Attending Physician: Kaylene Chau MD History of Present Illness Pain of the oral cavity for 2 years. Had a tooth extracted. Treated with antibiotics. Pain did not resolve. [facility] obtained. 02/12/2023. Biopsy of gingival mucosa. Keratosis with reactive atypia. 03/19/2023. MRI. There is asymmetric thickening and subtle enhancement along the mandibular branch of the left trigeminal nerve extending through the left foramen ovale with asymmetric contrast-enhancement of the left seo specialist space extending to the level just deep to the left mandible. Overall features are concerning for possible neoplastic process with perineural spread. Infectious/inflammatory etiology cannot be excluded in the appropriate clinical setting. A 9.5 x 6 mm extra-axial intensely enhancing mass along the anterior aspect of the right middle cranial fossa presumably a small meningioma. Otherwise no evidence of acute intracranial process 03/19/2023. CT of the soft tissues of the neck. Artifacts from dental amalgam limits evaluation of adjacent structures. There is a rather smooth marginated sculpting defect along the lateral aspect of the posterior left mandible, likely at the site of the previous tooth extraction with adjacent asymmetric soft tissue prominence and subtle asymmetric sclerotic changes involving the portion of the left mandible. No definite associated bone erosion or destructive changes. Features could be due to mild infectious/inflammatory change. There is a ill-defined area of low attenuation possibly air along the medial aspect of the anterior left mandible/floor of the mouth. For clinical correlation for possible pocket of infection there is no definite masses in the region of the left seo specialist space/left infratemporal fossa to correspond to the suspected area of abnormal signal on the previous MRI. Bilateral small area of food feels within the maxillary sinuses, clinical correlation for sinusitis. 03/20/2023. Direct laryngoscopy and biopsy of the left mandibular gingiva (Dr. Dwight Thayer). Path report reveals: Gingiva, left mandibular, biopsy: Well-differentiated squamous cell carcinoma. Gingiva, left mandibular, biopsy: Well-differentiated squamous cell carcinoma. 03/20/2023. CT of the chest. There are a few small nodular densities in the right lung seen on series 203 image 8 and 78 measuring 5 mm and 3 mm respectively. There is a 3 mm nodule in the right medial lung base seen on series 201 image 98. Given the patient's history of malignancy 3-month follow-up with enhanced CT of the chest was recommended. No adenopathy. Some air in the biliary tree which could represent recent instrumentation or sequela of prior cholecystectomy. Correlate with medical history. This is a nonspecific finding but correlate for infection or colitis. 04/03/2023. PET/CT. Moderate FDG avid soft tissue asymmetry and mass in the left retromolar trigone region and adjacent soft tissues along the medial aspect of the ramus of the left mandible concerning for infection versus inflammation versus neoplasm. No evidence of metastatic lymphadenopathy in the neck. No skeletal hypermetabolic lesions. Degenerative joint disease, osteopenia, and bone marrow send immunization individualized Bulky prostate gland with projection into the bladder with asymmetric thickening of the bladder wall in the posterior and left lateral aspect. Asymmetric thickening of the posterior and left lateral bladder wall is concerning for a mass lesion, recommend urology consultation. No metastatic lymphadenopathy. 03/2023. ENT evaluation by Dr. Ibrahim ([facility]). Recommendation is against surgical resection. Plan for primary chemotherapy and radiation therapy. Official notes are not available however this has been confirmed by the patient. In process of obtaining for official notes. 04/28/2023. Radiation oncology consultation (Dr. Hebert). Recommendation for radiation therapy to the primary tumor site and left cervical lymph nodes and levels 1B through 4. Patient wished to receive his radiation therapy closer to home and was referred to [facility]. 05/05/2023. Radiation oncology consultation. Patient has significant pain involving his left mandible. He has difficulty opening his mouth. Patient already has a feeding tube placed. Patient had recent dental evaluation. Recommendation is for chemotherapy and radiation therapy. 05/06/2023. Patient presented to the emergency room with recurrent nausea and vomiting. He had been eating and drinking very little. He had not been taking his medications. He was found to be hypertensive. He does do tube feedings. He is on pain medication for his cancer pain in the jaw. He denies any fever or chills. There is been no issues with diarrhea. He was admitted for further evaluation and treatment. 05/07/2023. Radiation oncology consultation. The patient recently was seen in office on 05/05/2023. Plans are for combined radiation and chemotherapy. Was scheduled for CT simulation today. That was to be performed at 10:00. With hydration and antiemetics this morning he is feeling well. He has had no nausea this morning. He has had no vomiting. He did wish to proceed with getting his CT simulation completed. Medical oncology referral has been placed. Dr. Morgan did speak with Dr. Luong today. They were in agreement to see him as an inpatient to speciate the beginning of combined therapy. Allergies Allergy/AdvReac Type Severity Reaction Status Date / Time grass pollen Allergy Mild sneezing Verified 05/06/23 23:50 congestion in fall tree and shrub pollen Allergy Mild sneezing Verified 05/06/23 23:50 congestion in fall weed pollen Allergy Mild sneezing Verified 05/06/23 23:50 congestion in fall Home Medications Medication Instructions Recorded Confirmed Type amlodipine 2.5 mg tablet 2.5 mg PO BID 05/05/23 05/06/23 History bisacodyl 5 mg tablet 10 mg PO DAILY PRN Constipation 05/05/23 05/06/23 History celecoxib 100 mg capsule 100 mg PO BID PRN Pain 05/05/23 05/06/23 History cyanocobalamin (vitamin B-12) 1,000 mcg PO DAILY 05/05/23 05/06/23 History 1,000 mcg capsule ensure plus vanilla 1 can PO BID 05/05/23 05/06/23 History fluocinonide 0.05 % topical cream 1 applic topical Q OTHER DAY 05/05/23 05/06/23 History ketoconazole 2 % shampoo 1 applic topical .COMPLEX 05/05/23 05/06/23 History magnesium hydroxide 400 mg/5 mL 10 ml PO DAILY PRN Constipation 05/05/23 05/06/23 History oral suspension (Milk of Magnesia) morphine 30 mg immediate release 30 mg PO TID PRN Pain 05/05/23 05/06/23 History tablet naloxone 4 mg/actuation nasal spray 4 mg intranasal Q2M 05/05/23 05/06/23 Hist ory ondansetron 4 mg disintegrating 4 mg PO Q6H PRN NAUSEA/VOMITING 05/05/23 05/06/23 History tablet ondansetron 8 mg disintegrating 8 mg PO Q8H PRN NAUSEA/VOMITING 05/05/23 05/06/23 History tablet oxycodone 10 mg tablet 15 mg PO Q4H PRN Pain 05/05/23 05/06/23 History pantoprazole 40 mg tablet,delayed 40 mg PO BID 05/05/23 05/06/23 History release polyethylene glycol 3350 17 17 g PO HS 05/05/23 05/06/23 History gram/dose oral powder pregabalin 75 mg capsule 150 mg PO BID 05/05/23 05/06/23 History propranolol 60 mg capsule,24 60 mg PO DAILY 05/05/23 05/06/23 History hr,extended release protein See Rx Instructions PO .COMPLEX 05/05/23 05/06/23 History sennosides 8.6 mg tablet 8.6 mg PO TID PRN Constipation 05/05/23 05/06/23 History tamsulosin 0.4 mg capsule 0.4 mg PO DAILY 05/05/23 05/06/23 History albuterol sulfate 90 mcg/actuation 1 puff inhalation DIRECTED PRN 02/21/24 02/21/24 History aerosol inhaler Shortness Of Breath Or Wheezing hydrochlorothiazide 25 mg tablet 25 mg PO QAM 05/06/23 05/06/23 History losartan 25 mg tablet 25 mg PO QAM 05/06/23 05/06/23 History ondansetron 4 mg disintegrating 4 mg PO Q6H PRN nausea and 05/08/23 Rx tablet vomiting #60 tabs prochlorperazine maleate 5 mg 5 mg PO Q6H PRN nausea and 05/08/23 Rx tablet (Compazine) vomiting #60 tabs Patient History Medical History Asthma Spinal stenosis Hemorrhagic cerebrovascular accident (CVA) Hypertension Surgical History (Updated 05/05/23 @ 13:25 by Lucina Avilez, JAKE) H/O hemorrhoidectomy S/P tonsillectomy S/P percutaneous endoscopic gastrostomy (PEG) tube placement H/O ankle fusion Family History (Updated 05/05/23 @ 13:25 by Lucina Avilez, RN) Mother Diabetes Father Cancer Mass in lung Other Family history non-contributory Social History Smoking Status: Former smoker Tobacco Type: Cigarettes Cigarettes Per Day: 10; Second Hand Exposure: Yes; Hx Alcohol Use: No Hx Substance Use: No Preferred Language: [place] Communication Ability: Effective Hearing Ability: Hard of Hearing Care Clinician Required: No Beliefs That Will Affect Care: None marital status: Current Living Situation: Spouse current occupational status: retired Other Information That Helps Us Care for You: No Feels Safe at Home: Yes Safety Concerns: Feels Safe At This Time Diet: Liquid Tube Feedings Diet Comment: water and ensure during the past year weight has: decreased > 10 lbs Assistive Devices: Cane Assistive Devices Comment: doesn't use all the time Radiation History Diagnosis: Oral cavity. Left gingival mucosa. SCC. [id number]. Stage KEARA. Treatment: Planning combined radiation and chemotherapy. Review of Systems Review of Systems: 13 point review of systems negative othe r than what is mentioned in history of present illness. Physical Exam Constitutional: WD/WN, vitals as above Eyes: PERRL, conjunctivae normal, anicteric sclerae ENMT: Ears: no hearing impairment Smooth exophytic mass is palpable along the left lateral gingival mucosa/mandible. Neck: trachea midline, no thyromegaly Respiratory: normal respiratory effort, lungs clear to auscultation Cardiovascular: RRR, no murmur, no edema Gastrointestinal (Abdomen): normal bowel sounds, soft, nontender, no hepatosplenomegaly Skin: no rashes, warm and dry Psychiatric: A+Ox3, euthymic affect Lymphatic: no cervical or axillary lymphadenopathy Results (Rad Onc) Laboratory Results: were reviewed and no pertinent findings 05/06/2023. CT of the abdomen and pelvis. 1. The appendix is not visible. Bowel loops are nondilated. There is mild diverticulosis of the sigmoid colon. No acute inflammatory changes are seen involving the bowel. 2. Previous cholecystectomy. Is a trace amount of pneumobilia. No biliary duct dilation is seen. Time Spent Midlevel I spent [15] minutes in preparation for this follow up evaluation including reviewing all the clinical records, reviewing laboratory studies, pathology reports and imaging results. I spent [20] minutes with direct face to face interaction with the patient and/or family including performing a physical exam and answering all questions. I spent [10] minutes documenting this patient's visit. PG Care Time/CCT Total # of Minutes Spent Total Time Spent with Patient: Total time spent is greater than 50% in coordination of care (as documented) at patient's floor/unit and/or counseling patient: Coding Level of Care Code 14175 INT INP/OBS CARE 1/40MIN Diagnoses Squamous cell carcinoma of gingiva C03.9
[2023-05-07] MEDS: TUBE FEEDING WATER FLUSH PEG SCH (13:58)
[2023-05-07] MEDS: FIBERSOURCE HN 1.2 CAL 1000 ML BAG GT SCH (14:52)
--- NOTE | 2023-05-07 15:27 | Electrocardiogram Report ---
Test Reason : Blood Pressure : / mmHG Vent. Rate : 072 BPM Atrial Rate : 072 BPM P-R Int : 166 ms QRS Dur : 090 ms QT Int : 398 ms P-R-T Axes : 015 -24 041 degrees QTc Int : 435 ms Normal sinus rhythm with sinus arrhythmia Normal ECG When compared with ECG of 01-JAN-2023 10:54, No significant change was found Confirmed by Alistair Dee ([id number]) on 05/07/2023 3:27:31 PM Referred By: REFERRED SELF Confirmed By:Segun Dee
--- NOTE | 2023-05-07 16:22 | Oncology Consultation ---
Date of Consultation May 07, 2023 Assessment & Plan (1) Asymptomatic hypertensive urgency: (2) Squamous cell carcinoma of gingiva: Plan -Had an extensive discussion with patient today. Also discussed with his over the phone. Agree with concurrent chemoradiation treatment. Plan to treat with weekly cisplatin 40 mg/m while he is receiving radiation treatment. Potential side effects of cisplatin discussed with patient and his including nausea, vomiting, ototoxicity, nephrotoxicity, peripheral neuropathy, myelosuppression. He agreed to proceed with treatment. I have placed outpatient orders for weekly cisplatin. Will plan to see him back in clinic within a week for chemo talk in anticipation of potentially starting chemotherapy when radiation planning is completed -Consider discharging home on both Zofran and Compazine for nausea Thank you for this consult. Oncology will follow-up with patient upon discharge. Please feel free to call if you have any further questions. History of Present Illness Reason for Consultation: Squamous cell carcinoma of the gingiva Attending Physician: Kaylene Chau MD History of Present Illness Pleasant 77-year-old gentleman recently diagnosed with squamous cell carcinoma of the gingiva. He was admitted to [facility] yesterday after presenting with nausea and vomiting and found to have elevated blood pressure/hypertensive urgency. Regarding recent diagnosis of squamous cell carcinoma of the gingiva, he has had workup including CT scans and PET/CT which did not show any evidence of distant metastatic disease/lymph node involvement. Per patient, his case was discussed at multidisciplinary tumor board with recom mendation for concurrent chemoradiation treatment. He was told by ENT surgeon that he would not be a candidate for surgery. He complains of nausea, vomiting, pain around his left jaw and is s/p PEG tube placement. Endorses hearing loss. Denies neuropathy.Oncology was consulted to discuss treatment options. Allergies Allergy/AdvReac Type Severity Reaction Status Date / Time grass pollen Allergy Mild sneezing Verified 05/06/23 23:50 congestion in fall tree and shrub pollen Allergy Mild sneezing Verified 05/06/23 23:50 congestion in fall weed pollen Allergy Mild sneezing Verified 05/06/23 23:50 congestion in fall Home Medications Medication Instructions Recorded Confirmed Type amlodipine 2.5 mg tablet 2.5 mg PO BID 05/05/23 05/06/23 History bisacodyl 5 mg tablet 10 mg PO DAILY PRN Constipation 05/05/23 05/06/23 History celecoxib 100 mg capsule 100 mg PO BID PRN Pain 05/05/23 05/06/23 History cyanocobalamin (vitamin B-12) 1,000 mcg PO DAILY 05/05/23 05/06/23 History 1,000 mcg capsule ensure plus vanilla 1 can PO BID 05/05/23 05/06/23 History fluocinonide 0.05 % topical cream 1 applic topical Q OTHER DAY 05/05/23 05/06/23 History ketoconazole 2 % shampoo 1 applic topical .COMPLEX 05/05/23 05/06/23 History magnesium hydroxide 400 mg/5 mL 10 ml PO DAILY PRN Constipation 05/05/23 05/06/23 History oral suspension (Milk of Magnesia) morphine 30 mg immediate release 30 mg PO TID PRN Pain 05/05/23 05/06/23 History tablet naloxone 4 mg/actuation nasal spray 4 mg intranasal Q2M 05/05/23 05/06/23 History ondansetron 4 mg disintegrating 4 mg PO Q6H PRN NAUSEA/VOMITING 05/05/23 05/06/23 History tablet ondansetron 8 mg disintegrating 8 mg PO Q8H PRN NAUSEA/VOMITING 05/05/23 05/06/23 History tablet oxycodone 10 mg tablet 15 mg PO Q4H PRN Pain 05/05/23 05/06/23 History pantoprazole 40 mg tablet,delayed 40 mg PO BID 05/05/23 05/06/23 History release polyethylene glycol 3350 17 17 g PO HS 05/05/23 05/06/23 History gram/dose oral powder pregabalin 75 mg capsule 150 mg PO BID 05/05/23 05/06/23 History propranolol 60 mg capsule,24 60 mg PO DAILY 05/05/23 05/06/23 History hr,extended release protein See Rx Instructions PO .COMPLEX 05/05/23 05/06/23 History sennosides 8.6 mg tablet 8.6 mg PO TID PRN Constipation 05/05/23 05/06/23 History tamsulosin 0.4 mg capsule 0.4 mg PO DAILY 05/05/23 05/06/23 History albuterol sulfate 90 mcg/actuation 1 puff inhalation DIRECTED PRN 05/06/23 05/06/23 History aerosol inhaler Shortness Of Breath Or Wheezing hydrochlorothiazide 25 mg tablet 25 mg PO QAM 05/06/23 05/06/23 History losartan 25 mg tablet 25 mg PO QAM 05/06/23 05/06/23 History Patient History Medical History Asthma Spinal stenosis Hemorrhagic cerebrovascular accident (CVA) Hypertension Surgical History (Updated 05/05/23 @ 13:25 by Lucina Avilez, RN) H/O hemorrhoidectomy S/P tonsillectomy S/P percutaneous endoscopic gastrostomy (PEG) tube placement H/O ankle fusion Family History (Updated 05/05/23 @ 13:25 by Lucina Avilez, JAKE) Mother Diabetes Father Cancer Mass in lung Other Family history non-contributory Social History Smoking Status: Former smoker Tobacco Type: Cigarettes Cigarettes Per Day: 10; Second Hand Exposure: Yes; Hx Alcohol Use: No Hx Substance Use: No Preferred Language: [place] Communication Ability: Effective Hearing Ability: Hard of Hearing Employment Consultant Required: No Beliefs That Will Affect Care: None marital status: Current Living Situation: Spouse current occupational status: retired Other Information That Helps Us Care for You: No Feels Safe at Home: Yes Safety Concerns: Feels Safe At This Time Diet: Liquid Tube Feedings Diet Comment: water and ensure during the past year weight has: decreased > 10 lbs Assistive Devices: Cane Assistive Devices Comment: doesn't use all the time Results & Data Vital Signs (Past 12 Hours) Vital Signs Temp Pulse Pulse Pulse Resp BP BP 05/07/23 11:26 37.2 C 65 18 160/81 H 05/07/23 08:00 60 05/07/23 07:20 37 C 73 18 166/80 H 05/07/23 03:36 64 05/07/23 02:58 60 18 05/07/23 02:50 36.5 C 70 18 184/80 H Pulse Ox O2 Del Method 05/07/23 11:26 96 Room Air 05/07/23 08:00 05/07/23 07:20 97 Room Air 05/07/23 03:36 05/07/23 02:58 05/07/23 02:50 97 Room Air
[2023-05-07] MEDS ORDERED: oxyCODONE HCL IR 5 MG TAB (IMMEDIATE RELEASE) PO PRN (20:07)
[2023-05-07] MEDS: POLYETHYLENE (MIRALAX) 17 GM PACK PO SCH (20:12)
[2023-05-07] MEDS: MoRPHine SULFATE 2 MG/ML CARP IV PRN (20:46)
[2023-05-07] MEDS ORDERED: PROCHLORPERAZINE 5 MG in SYRINGE 4 ML IV PRN (21:09)
[2023-05-07] MEDS ORDERED: ONDANSETRON INJ 2 MG/ML 2 ML VIAL IV PRN (21:10)
[2023-05-08 06:53] LABS: Basophils # (auto) 0.04 K/uL (0.00-0.20); Basophils % (auto) 0.5 %; Eosinophils # (auto) 0.15 K/uL (0.00-0.50); Eosinophils % (auto) 1.9 %; Hemoglobin 11.7 g/dl (14.0-18.0); Immature Granulocytes # (auto) 0.04 K/uL (0.01-0.20); Immature Granulocytes % (auto) 0.5 %; Lymphocytes # (auto) 0.91 K/uL (1.20-3.40); Lymphocytes % (auto) 11.5 %; Mean Corpuscular Hemoglobin 29.6 pg (25.0-34.0); Mean Corpuscular Hgb Conc 34.4 g/dL (32.0-36.0); Mean Corpuscular Volume 86.1 fL (80.0-100.0); Mean Platelet Volume 10.8 fL (9.4-12.4); Monocytes # (auto) 0.74 K/uL (0.11-0.59); Monocytes % (auto) 9.4 %; Neutrophils % (auto) 76.2 %; Platelet Count 217 K/uL (130-400); RDW Coefficient of Variation 13.4 % (11.5-14.5); RDW Standard Deviation 42.2 fL (36.4-46.3); Red Blood Count 3.95 M/uL (4.70-6.10); White Blood Count 7.88 K/ul (4.8-10.8)
[2023-05-08 07:09] LABS: Albumin Globulin Ratio 1.3 (0.9-2); Albumin Level 3.5 gm/dl (3.4-5.0); BUN Creatinine Ratio 22.6 (10-20); Calcium 8.9 mg/dl (8.6-10.3); Creatinine Clr Calc Pharmacy 99.6 ml/min; Est GFR (African American) 112.5 ml/min; Globulin 2.8 gm/dl (2.5-4.0); Magnesium 1.9 mg/dl (1.7-2.4); Phosphorus 3.4 mg/dl (2.5-4.9); Potassium 3.6 mmol/L (3.5-5.1); Total Protein 6.3 gm/dl (6.0-8.3)
[2023-05-08] MEDS: LOSARTAN POTASSIUM 50 MG TAB PO SCH (09:09)
--- NOTE | 2023-05-08 10:50 | Discharge Summary ---
Discharge Summary Date of Service May 08, 2023 Notes For Next Care Provider Please ensure close follow up with medical oncology, [facility] and [facility] Medication Changes From Visit Compazine 5mg q6h prn Zofran 4mg q6h prn Admission HPI Per Admitting Provider History obtained from patient, family, and records. Medical history significant for hypertension, hyperlipidemia, stage IV oral cavity cancer, ongoing tube feeds, cancer pain on narcotics, BPH, history traumatic subdural hematoma, bronchial asthma, past tobacco abuse. 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 Surgery not recommended by specialist. Chemoradiation contemplated. Patient scheduled to have outpatient CT simulation imaging for treatment planning for radiation therapy today at [facility] following initial consultation 2 days ago. 2 nights ago, patient noted nausea, vomiting symptoms. No unusual headache or abdominal pain complaints. No chest pain, SOB. Not sure about sick contacts. Good bowel movement. Denies black/bloody stools. No fever, no chills. Patient unable to keep anything down as per . Highest SBP of 170s documented at the ER. Intractable symptoms at the ER. 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 Admission Exam Per Admitting Provider GENERAL: Slightly uncomfortable, no respiratory distress SKIN: Pallor, warm HEENT: Pale palpebral conjunctivae, no ptosis, dry buccal mucosa, left jaw tenderness NECK : Supple, no tenderness CHEST : CTA, no tenderness HEART : RRR, no obvious murmurs ABDOMEN: Some distention, PEG tube in place, nontender EXTREMITIES : No LE swelling/tenderness, no other conspicuous deformities noted NEUROLOGIC : Coherent, no facial asymmetry, no other gross focality Principal Dx & Hospital Course #1 = Principal Diagnosis (1) Asymptomatic hypertensive urgency: (2) On tube feeding diet: (3) Jaw pain: Plan Pt is a 77yoM with PMHx significant for hypertension, hyperlipidemia, stage IV oral cavity cancer, ongoing tube feeds, cancer pain on narcotics, BPH, history traumatic subdural hematoma, bronchial asthma, past tobacco abuse admitted with intractable N/V. 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 Presenting with intractable N/V after starting tube feeds at home Notes he has not been able to eat at home due to jaw pain so started his tube feeds, questions if overfeeding and causing N/V UA not suggestive of infection as a possible cause Stool panel pending to rule out a viral GI illness- was not collected while hospitalized Uncertain etiology at this time Antiemetics- Heme/onc recommending compazine + zofran for d/c (see below), ordered while inpatient as well Supportive management for presumptive viral GI illness Resolved on discharge SCC of gingiva with mandibular invasion Pt with known diagnosis, follows with rad onc, appreciate recs. - recommendation for combined radiation and chemotherapy -CT simulation completed on 05/07 -per rad onc Dr Eddie torres consult to [facility] cancer center for medical oncology consult, Dr Ag montalvo Medical Oncology consulted, appreciate recs -plan for chemo outpatient, cisplatin while receiving radiation -follow up in clinic within a week for further discussion after radiation planning completed -Consider discharging home on both Zofran and Compazine for nausea (pt discharged with this and it was ordered inpatient for use as well) Chronic Jaw Pain-in setting of cancer above Tube feeds Pt with chronic jaw pain in setting of cancer above Unable to eat at times, requires tube feeds Notes he has not been able to eat at home due to jaw pain so started his tube feeds, questions if overfeeding and causing N/V 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 No acute distress Skin: No noted rashes or bruises Psych: Appropriate mood and affect Neuro: No gross deficits HEENT: NC/AT, oropharynx moist CV: RRR Resp: Breath sounds clear bilaterally, no increased effort of breathing. Abdomen: Soft, noted feeding tube system, notes tenderness in RLQ Extremities: No edema in lower extremities bilaterally. Updated Medication List Medication Instructions Recorded Confirmed Type amlodipine 2.5 mg tablet 2.5 mg PO BID 05/05/23 05/06/23 History bisacodyl 5 mg tablet 10 mg PO DAILY PRN Constipation 05/05/23 05/06/23 History celecoxib 100 mg capsule 100 mg PO BID PRN Pain 05/05/23 05/06/23 History cyanocobalamin (vitamin B-12) 1,000 mcg PO DAILY 05/05/23 05/06/23 History 1,000 mcg capsule ensure plus vanilla 1 can PO BID 05/05/23 05/06/23 History fluocinonide 0.05 % topical cream 1 applic topical Q OTHER DAY 05/05/23 05/06/23 History ketoconazole 2 % shampoo 1 applic topical .COMPLEX 05/05/23 05/06/23 History magnesium hydroxide 400 mg/5 mL 10 ml PO DAILY PRN Constipation 05/05/23 05/06/23 History oral suspension (Milk of Magnesia) morphine 30 mg immediate release 30 mg PO TID PRN Pain 05/05/23 05/06/23 History tablet naloxone 4 mg/actuation nasal spray 4 mg intranasal Q2M 05/05/23 05/06/23 History ondansetron 4 mg disintegrating 4 mg PO Q6H PRN NAUSEA/VOMITING 05/05/23 05/06/23 History tablet ondansetron 8 mg disintegrating 8 mg PO Q8H PRN NAUSEA/VOMITING 05/05/23 05/06/23 History tablet oxycodone 10 mg tablet 15 mg PO Q4H PRN Pain 05/05/23 05/06/23 History pantoprazole 40 mg tablet,delayed 40 mg PO BID 05/05/23 05/06/23 History release polyethylene glycol 3350 17 17 g PO HS 05/05/23 05/06/23 History gram/dose oral powder pregabalin 75 mg capsule 150 mg PO BID 05/05/23 05/06/23 History propranolol 60 mg capsule,24 60 mg PO DAILY 05/05/23 05/06/23 History hr,extended release protein See Rx Instructions PO .COMPLEX 05/05/23 05/06/23 History sennosides 8.6 mg tablet 8.6 mg PO TID PRN Constipation 05/05/23 05/06/23 History tamsulosin 0.4 mg capsule 0.4 mg PO DAILY 05/05/23 05/06/23 History albuterol sulfate 90 mcg/actuation 1 puff inhalation DIRECTED PRN 05/06/23 05/06/23 History aerosol inhaler Shortness Of Breath Or Wheezing hydrochlorothiazide 25 mg tablet 25 mg PO QAM 05/06/23 05/06/23 History losartan 25 mg tablet 25 mg PO QAM 05/06/23 05/06/23 History ondansetron 4 mg disintegrating 4 mg PO Q6H PRN nausea and 05/08/23 Rx tablet vomiting #60 tabs prochlorperazine maleate 5 mg 5 mg PO Q6H PRN nausea and 05/08/23 Rx tablet (Compazine) vomiting #60 tabs Hospital Stay Data Consultations 05/06/23 23:25 ED Decision to Admit Stat 05/07/23 02:25 Consult Radiation Oncology Routine 05/07/23 08:06 Consult Oncology Routine Diagnostic Imagining Performed 05/06/23 21:47 CT Abd and Pelvis [CT abd pelvis IV con only] Stat 05/07/23 10:28 CT guide rad therapy neck Routine Abdomen/Pelvis CT 05/06/23 21:47 Exam(s): CT ABDOMEN + PELVIS With Contrast IV Amt: 82 ml optiray 320 EXAM: CT Abdomen and Pelvis With Intravenous Contrast CLINICAL HISTORY: Reason for exam: poss obstruction. TECHNIQUE: Axial computed tomography images of the abdomen and pelvis with intravenous contrast. CTDI is 19.33 mGy and DLP is 1018.19 mGy-cm. Automated exposure control was utilized for the study. A dose lowering technique was utilized adhering to the principles of ALARA. CONTRAST: Patient received 82 ml optiray 320 of IV contrast COMPARISON: December 14, 2017 FINDINGS: Lung bases: Unremarkable. No mass. No consolidation. ABDOMEN: Liver: Unremarkable. No mass. Gallbladder and bile ducts: Previous cholecystectomy. Is a trace amount of pneumobilia. No biliary duct dilation is seen. Pancreas: Unremarkable. No mass. No ductal dilation. Spleen: Unremarkable. No splenomegaly. Adrenals: Unremarkable. No mass. Kidneys and ureters: Unremarkable. No solid mass. No hydronephrosis. Stomach and bowel: See below. PELVIS: Appendix: The appendix is not visible. Bowel loops are nondilated. There is mild diverticulosis of the sigmoid colon. No acute inflammatory changes are seen involving the bowel. Bladder: Unremarkable. No mass. Reproductive: Unremarkable as visualized. ABDOMEN and PELVIS: Intraperitoneal space: Unremarkable. No free air. No significant fluid collection. Bones/joints: Mild to moderate multilevel degenerative changes throughout the spine. No acute fracture or subluxation is seen. Soft tissues: Unremarkable. Vasculature: The abdominal aorta is mildly calcified but nondilated. Lymph nodes: Unremarkable. No enlarged lymph nodes. Tubes, lines and devices: There is a gastrostomy tube in the stomach. IMPRESSION: 1. The appendix is not visible. Bowel loops are nondilated. There is mild diverticulosis of the sigmoid colon. No acute inflammatory changes are seen involving the bowel. 2. Previous cholecystectomy. Is a trace amount of pneumobilia. No biliary duct dilation is seen. Electronically signed by: David Bajwa MD 05/06/23 23:08 PM Pending Results Patient Have Any Pending Studies at Discharge: No Discharge Instructions Given to Patient (Per Discharging Provider) Mr. Cortes, You were admitted with intractable nausea and vomiting. You were also seen by Radiation Oncology and Medical Oncology while you were here. Oncology is recommending discharge home to help with nausea and vomiting especially in the setting of chemotherapy that you are about to start. Please keep close followup with your specialists and primary care provider as well as [facility] after [facility]. It was a pleasure taking care of you while you were here. Total Time Total Time Spent Total Time Spent (In Minutes): > 30 minutes
== END 2023-05-08 11:36 | disposition home or self-care (01) ==
LOC: 2N 18:17 → ED 18:17 → 2N 05-07 02:21
DX: C03.1 Malignant neoplasm of lower gum; R11.2 Nausea with vomiting, unspecified; J45.909 Unspecified asthma, uncomplicated; N40.0 Benign prostatic hyperplasia without lower urinary tract symptoms; E78.5 Hyperlipidemia, unspecified; Z79.1 Long term (current) use of non-steroidal anti-inflammatories (NSAID); Z87.891 Personal history of nicotine dependence; Z79.899 Other long term (current) drug therapy; Z79.891 Long term (current) use of opiate analgesic; I10 Essential (primary) hypertension; Z87.820 Personal history of traumatic brain injury; D64.9 Anemia, unspecified; Z93.1 Gastrostomy status; I16.0 Hypertensive urgency; G89.3 Neoplasm related pain (acute) (chronic)